=== PATIENT | female | born 1960 | race Hispanic/Latino ===

== ENCOUNTER 2017-11-05 07:10 | Outpatient (CLI) | payer OTHER | END 2017-11-05 07:11 | disposition home or self-care (01) | LOC: BICMAMMO 07:10 | PROVIDERS: ATTEND Family Medicine | DX: Z12.31 Encounter for screening mammogram for malignant neoplasm of breast (principal); R92.1 Mammographic calcification found on diagnostic imaging of breast | CPT/HCPCS: 77067; G0202 ==

== ENCOUNTER 2024-12-09 10:56 | Emergency (ER) | payer SELFPAY ==
[2024-12-09] MEDS ORDERED: Meclizine HCl 25 MG TAB ONE (11:55)
[2024-12-09 12:06] LABS: #Basophils Less than 0.03 10x3/uL (0.0-0.2); %Basophils 0.4 % (0.0-1.0); %Lymphocytes 34.6 % (21.0-51.0); %Monocytes 6.4 % (0.0-10.0); %Neutrophils 56.6 % (42.0-75.0); Hematocrit 38.6 % (36.0-47.0); Hemoglobin 12.9 g/dL (12.0-16.0); Mean Corpuscular HGB CONC 33.4 g/dL (32.0-36.0); Mean Corpuscular Hemoglobin 30.7 pg (27.0-31.0); Mean Corpuscular Volume 91.9 fL (78.0-98.0); Mean Platelet Volume 10.8 fL (7.4-10.4); Platelet Count 204 10x3/uL (130-400); RBC Distribution Width 13.7 % (11.5-14.5)
[2024-12-09 13:03] LABS: Bacteria/HPF None Seen HPF (None Seen); Bilirubin Negative (Negative); Blood, Urine Negative (Negative); CAUTI Indications for Culture Dysuria,urgency,freq; Clarity Clear (Clear); Glucose, Urine (Dipstick) Normal (Negative); Ketone, Urine Negative (Negative); Leukocyte Negative Leu/uL (Negative); Nitrite Negative (Negative); Protein, Urine (Dipstick) Negative (Neg-Trace); RBC/HPF 0-3 HPF (0-3); Specific Gravity, Urine 1.007 (1.002-1.036); Squamous Epithelial 0-3 HPF (0-3); Urobilinogen Normal mg/dL (Less than 2); WBC/HPF 0-3 HPF (0-3)
[2024-12-09 13:04] LABS: Urine Culture Reflex No No
[2024-12-09 13:26] LABS: Troponin I Less than 0.010 ng/mL (< 0.028)
[2024-12-09] MEDS ORDERED: Iopamidol-370 76% 500 ML MDV (1 ML CHARGE) ONE (13:55)
[2024-12-09 14:02] LABS: Albumin 3.6 g/dL (3.1-4.5); Calcium 9.6 mg/dL (7.8-10.44); Chloride 105 mmol/L (98-107); Potassium 3.9 mmol/L (3.5-5.1); Sodium 139 mmol/L (136-145)
[2024-12-09 14:03] LABS: Globulin 3.1 g/dL (2.4-3.5); Glucose 89 mg/dL (80-115); Protein, Total 6.7 g/dL (5.8-8.1)
[2024-12-09 14:04] LABS: Anion Gap 13 mmol/L (10-20); Carbon Dioxide 25 mmol/L (23-31)
[2024-12-09 14:06] LABS: Alkaline Phosphatase 139 U/L (40-110); Bilirubin, Total 0.4 mg/dL (0.3-1.2)
[2024-12-09 14:07] LABS: BUN (Urea Nitrogen) 15 mg/dL (9.8-20.1); Calc. Creatinine Clearance 0 mL/min (70-130); Estimated GFR 81
[2024-12-09 14:08] LABS: Magnesium 2.1 mg/dL (1.6-2.6)
[2024-12-09 14:09] LABS: ALT (SGPT) 12 U/L (Less than 34); AST (SGOT) 21 U/L (11-34)
== END 2024-12-09 16:18 | disposition home or self-care (01) ==
LOC: ERS 10:56
DX: R42 Dizziness and giddiness (principal)
CPT/HCPCS: 36415; 70496; 70498; 80053; 81001; 83735; 84484; 85025; 93005; Q9967